=== PATIENT | male | born 1995 | race Caucasian/White ===

== ENCOUNTER 2018-10-30 11:59 | Emergency (ER) | payer BC ==
[~2018-10-30] VITALS: Ht 185.4 cm; Wt 88.5 kg
[2018-10-30 12:12] VITALS: BP_SYST 133
--- NOTE | 2018-10-30 12:14 | NUR ---
Patient to ER bed 7 to gown for evaluation. Side rails up. Report given to JOSE MIGUEL SULLIVAN.
--- NOTE | 2018-10-30 12:15 | NUR ---
ER at bedside examining patient.
--- NOTE | 2018-10-30 12:30 | NUR ---
Rapid strep done and sent to lab.
--- NOTE | 2018-10-30 12:38 | NUR ---
patient AOx4 from home with c/o sore throatx 3days. patient has no visable white spots. patients throat is red. patient does not have a horse voice. patient has no swelling to the neck and patient can eat and drink without discomfort. no other complaint or injury at this time.
[2018-10-30] MEDS ORDERED: IBUPROFEN 800 MG TABLET PO ONE (13:15)
--- NOTE | 2018-10-30 13:30 | NUR ---
Patient given written and verbal discharge instructions and verbalizes understanding. ER MD discussed with patient the results and treatment provided. Patient in stable condition. ID arm band removed. Rx of Motrin given. Patient educated on pain management and to follow up with PMD. Pain Scale 0/10. Opportunity for questions provided and answered. Medication side effect fact sheet provided.
[2018-10-30 13:32] VITALS: BP_SYST 125
== END 2018-10-30 13:32 | disposition home or self-care (01) ==
LOC: SED 11:59
DX: J02.8 Acute pharyngitis due to other specified organisms (principal); B97.89 Other viral agents as the cause of diseases classified elsewhere; R03.0 Elevated blood-pressure reading, without diagnosis of hypertension; Z88.1 Allergy status to other antibiotic agents
CPT/HCPCS: 36415; 86403; 87081; 99283